=== PATIENT | male | born 1990 | race Two or more races ===

== ENCOUNTER 2024-06-09 17:41 | Emergency (ER) | payer MEDICAID ==
[~2024-06-09] VITALS: Ht 185.4 cm; Wt 86.2 kg
[2024-06-09 18:00] VITALS: BP 136/74; TEMP 98.5; O2SAT 100
== END 2024-06-09 19:30 | disposition left against medical advice (07) ==
LOC: ER 17:46
DX: T76.21XA Adult sexual abuse, suspected, initial encounter (principal); Y07.9 Unspecified perpetrator of maltreatment and neglect